=== PATIENT | female | born 2000 | race Two or more races ===

== ENCOUNTER 2021-12-28 18:03 | Inpatient (IN) | payer OTHER ==
[2021-12-28 19:21] VITALS: BMI 18.8
[2021-12-28] MEDS ORDERED: MENTHOL/PHENOL 1 EACH UD MM PRN (19:22)
[2021-12-28] MEDS ORDERED: ONDANSETRON *ODT* 4 MG TABLET SL PRN (19:22)
[2021-12-28] MEDS ORDERED: MAG HYDROX/AL HYDROX/SIMETH 30 ML UNIT-DOSE CUP PO PRN (19:22)
[2021-12-28] MEDS ORDERED: MAGNESIUM HYDROX 2400MG/30ML ORAL SUSPENSION 30 ML CUP PO PRN (19:22)
[2021-12-28] MEDS ORDERED: MAGNESIUM CITRATE 300 ML BOTTLE PO PRN (19:22)
[2021-12-28] MEDS ORDERED: BISMUTH SUBSALICYLATE 524 MG/30 ML PO PRN (19:22)
[2021-12-28] MEDS ORDERED: IBUPROFEN 400 MG TABLET (FP) PO PRN (19:22)
[2021-12-28] MEDS ORDERED: ACETAMINOPHEN 325 MG TABLET (FP) PO PRN ×2 (19:22)
[2021-12-28] MEDS ORDERED: LOPERAMIDE HCL 2 MG CAPSULE PO PRN (19:22)
[2021-12-28] MEDS ORDERED: methaDONE HCL 10 MG TABLET (FOR DETOX USE ONLY) PO ONE (19:24)
[2021-12-28] MEDS ORDERED: cloNIDine HCL 0.1 MG TABLET PO PRN (19:24)
[2021-12-28] MEDS: THIAMINE HCL 100 MG TABLET (FP) PO SCH (23:02)
[2021-12-29] MEDS: hydrOXYzine PAMOATE 25 MG CAPSULE (FP) PO PRN ×2 (08:31→22:12)
[2021-12-29] MEDS ORDERED: methaDONE HCL 10 MG TABLET (FOR DETOX USE ONLY) ONE (09:47)
[2021-12-29] MEDS: PRENATAL VITAMINS W/ FOLIC ACID TABLET (FP) PO SCH (09:53)
[2021-12-29] MEDS: METHOCARBAMOL 500 MG TABLET PO PRN ×2 (09:53→18:05)
[2021-12-29] MEDS: diazePAM 5 MG TABLET PO PRN ×3 (10:45→22:11)
[2021-12-29 12:47] LABS: HEMOGLOBIN 10.9 GM/dL (10.7-15.3); MCH 29.3 pg (25.7-33.7); MCHC 32.1 g/dl (32.0-36.0); MEAN PLT VOLUME 10.1 fl (7.5-11.1); PLATELET COUNT 260 10^3/uL (134-434); RBC 3.73 M/mm3 (3.60-5.2); RDW 13.8 % (11.6-15.6); WHITE BLOOD COUNT 11.2 K/mm3 (4.0-10.0)
[2021-12-29 13:04] LABS: ALBUMIN 3.2 g/dl (3.4-5.0); BLOOD UREA NITROGEN 10.4 mg/dL (7-18); CALCIUM 9.3 mg/dL (8.5-10.1)
[2021-12-29 13:06] LABS: CREATININE 0.7 mg/dL (0.55-1.3)
[2021-12-29 13:08] LABS: BILIRUBIN,TOTAL 0.1 mg/dL (0.2-1); TOT PROT 6.5 g/dl (6.4-8.2)
[2021-12-29] MEDS: NICOTINE POLACRILEX 2 MG GUM BUC PRN (18:00)
[2021-12-29] MEDS ORDERED: TRIMETHOBENZAMIDE HCL 200MG/2ML INJ IM ONE (18:41)
[2021-12-29] MEDS: THIAMINE HCL 100 MG TABLET (FP) PO SCH (22:11)
[2021-12-29] MEDS: NICOTINE 10 MG CARTRIDGE (INHALER) IH PRN (22:11)
[2021-12-29] MEDS: MELATONIN 5 MG TABLETS PO PRN (22:11)
[2021-12-30] MEDS ORDERED: methaDONE HCL 10 MG TABLET (FOR DETOX USE ONLY) PO ONE (10:00)
[2021-12-30] MEDS: NICOTINE 10 MG CARTRIDGE (INHALER) IH PRN ×3 (10:05→22:07)
[2021-12-30] MEDS: PRENATAL VITAMINS W/ FOLIC ACID TABLET (FP) PO SCH (10:05)
[2021-12-30] MEDS: hydrOXYzine PAMOATE 25 MG CAPSULE (FP) PO PRN ×2 (10:06→22:05)
[2021-12-30 10:08] LABS: SARS-CoV-2 NAA Not Detected (Not Detected)
[2021-12-30] MEDS: diazePAM 5 MG TABLET PO PRN ×2 (13:07→22:05)
[2021-12-30] MEDS: METHOCARBAMOL 500 MG TABLET PO PRN ×2 (13:09→22:05)
[2021-12-30] MEDS: MELATONIN 5 MG TABLETS PO PRN (22:05)
[2021-12-30] MEDS: THIAMINE HCL 100 MG TABLET (FP) PO SCH (22:05)
[2021-12-31] MEDS ORDERED: methaDONE HCL 10 MG TABLET (FOR DETOX USE ONLY) ONE (09:36)
[2021-12-31] MEDS: PRENATAL VITAMINS W/ FOLIC ACID TABLET (FP) PO SCH (10:14)
[2021-12-31] MEDS: diazePAM 5 MG TABLET PO PRN ×3 (10:15→19:04)
[2021-12-31] MEDS: METHOCARBAMOL 500 MG TABLET PO PRN ×3 (10:20→23:11)
[2021-12-31] MEDS: NICOTINE 10 MG CARTRIDGE (INHALER) IH PRN ×3 (10:21→18:04)
[2021-12-31] MEDS: hydrOXYzine PAMOATE 25 MG CAPSULE (FP) PO PRN ×2 (18:05→22:25)
[2021-12-31] MEDS: NICOTINE POLACRILEX 2 MG GUM BUC PRN (20:25)
[2021-12-31] MEDS: THIAMINE HCL 100 MG TABLET (FP) PO SCH (22:25)
[2021-12-31] MEDS ORDERED: hydrOXYzine PAMOATE 25 MG CAPSULE (FP) PO ONE (22:53)
[2021-12-31] MEDS ORDERED: diazePAM 5 MG TABLET PO ONE (22:54)
[2022-01-01] MEDS: NICOTINE 10 MG CARTRIDGE (INHALER) IH PRN ×3 (09:40→22:21)
[2022-01-01] MEDS: hydrOXYzine PAMOATE 25 MG CAPSULE (FP) PO PRN ×3 (09:44→22:21)
[2022-01-01] MEDS: PRENATAL VITAMINS W/ FOLIC ACID TABLET (FP) PO SCH (09:44)
[2022-01-01] MEDS: NICOTINE POLACRILEX 2 MG GUM BUC PRN ×2 (09:46→17:40)
[2022-01-01] MEDS ORDERED: methaDONE HCL 10 MG TABLET (FOR DETOX USE ONLY) PO ONE (10:00)
[2022-01-01] MEDS: METHOCARBAMOL 500 MG TABLET PO PRN ×2 (17:38→23:25)
[2022-01-01] MEDS: MELATONIN 5 MG TABLETS PO PRN (22:21)
[2022-01-01] MEDS: THIAMINE HCL 100 MG TABLET (FP) PO SCH (22:21)
[2022-01-02] MEDS: hydrOXYzine PAMOATE 25 MG CAPSULE (FP) PO PRN (06:54)
[2022-01-02] MEDS: METHOCARBAMOL 500 MG TABLET PO PRN (06:54)
[2022-01-02] MEDS: NICOTINE 10 MG CARTRIDGE (INHALER) IH PRN (06:55)
[2022-01-02] MEDS: PRENATAL VITAMINS W/ FOLIC ACID TABLET (FP) PO SCH (10:38)
[2022-01-02 11:23] VITALS: BP 122/72; PULSE 111; TEMP 96.9
== END 2022-01-02 10:03 | disposition home or self-care (01) | DRG 773 ==
LOC: YASAS 18:03 → Y3N 19:53
PROVIDERS: ADMIT Allergy & Immunology; ATTEND Allergy & Immunology
PROC: HZ2ZZZZ Detoxification Services for Substance Abuse Treatment (ICD-10-PCS; principal; 2021-12-28)
DX: F11.23 Opioid dependence with withdrawal (principal); F14.20 Cocaine dependence, uncomplicated; F17.210 Nicotine dependence, cigarettes, uncomplicated; F19.24 Other psychoactive substance dependence with psychoactive substance-induced mood disorder; F41.9 Anxiety disorder, unspecified; D72.829 Elevated white blood cell count, unspecified; E88.09 Other disorders of plasma-protein metabolism, not elsewhere classified; Z62.810 Personal history of physical and sexual abuse in childhood; Z56.0 Unemployment, unspecified; Z59.00 Homelessness unspecified
CPT/HCPCS: 36415; 80053; 85027; 86780; 87811; C9803; J0735; Q0162; U0003; U0005

== ENCOUNTER 2025-07-05 16:37 | Inpatient (IN) | payer OTHER ==
[2025-07-05 16:52] VITALS: BMI 21.4
[2025-07-05] MEDS ORDERED: LOPERAMIDE HCL 2 MG CAPSULE PO PRN (17:52)
[2025-07-05] MEDS ORDERED: ACETAMINOPHEN 325 MG TABLET (FP) PO PRN (17:52)
[2025-07-05] MEDS ORDERED: MAG HYDROX/AL HYDROX/SIMETH 30 ML UNIT-DOSE CUP PO PRN (17:52)
[2025-07-05] MEDS ORDERED: POLYETHYLENE GLYCOL (HEALTHYLAX) 3350 17 GM PACKET PO PRN (17:52)
[2025-07-05] MEDS ORDERED: IBUPROFEN 600 MG TABLET (FP) PO PRN (17:52)
[2025-07-05] MEDS ORDERED: BENZONATATE 200 MG CAPSULE PO PRN (17:52)
[2025-07-05] MEDS ORDERED: NALOXONE (NARCAN) HCL 4 MG/0.1 ML SPRAY NS PRN (17:52)
[2025-07-05] MEDS ORDERED: IBUPROFEN 400 MG TABLET (FP) PO PRN (17:52)
[2025-07-05] MEDS ORDERED: ONDANSETRON *ODT* 4 MG TABLET SL PRN (17:52)
[2025-07-05] MEDS ORDERED: BISMUTH SUBSALICYLATE 524 MG/30 ML PO PRN (17:52)
[2025-07-05] MEDS ORDERED: NICOTINE POLACRILEX 2 MG LOZENGE BC PRN (17:52)
[2025-07-05] MEDS ORDERED: DICYCLOMINE HCL 10 MG CAPSULE PO PRN (17:52)
[2025-07-05] MEDS ORDERED: guaiFENesin 600 MG TABLET.ER (FP) PO PRN (17:52)
[2025-07-05] MEDS ORDERED: MAGNESIUM HYDROX 2400MG/30ML ORAL SUSPENSION 30 ML CUP PO PRN (17:52)
[2025-07-05] MEDS ORDERED: NICOTINE POLACRILEX 2 MG GUM BUC PRN (17:52)
[2025-07-05] MEDS ORDERED: BENZOCAINE/MENTHOL (CHLORASEPTIC ) LOZENGE MM PRN (17:52)
[2025-07-05] MEDS: MELATONIN 5 MG TABLETS PO SCH (22:48)
[2025-07-05] MEDS: METHOCARBAMOL 500 MG TABLET PO PRN (22:48)
[2025-07-05] MEDS: hydrOXYzine PAMOATE 25 MG CAPSULE (FP) PO PRN (22:48)
[2025-07-05] MEDS: THIAMINE 100 MG TABLET PO SCH (22:50)
[2025-07-06 09:44] LABS: MCHC 28.9 g/dl (32.2-35.5); MEAN CELL VOLUME 77.9 fl (79.4-94.8); MEAN PLT VOLUME 11.3 fl (9.4-12.3); RDW 17.1 % (12.1-16.5)
[2025-07-06 10:07] LABS: GLUCOSE,RANDOM 123 mg/dL (74-106); TOT PROT 7.2 g/dl (6.4-8.2)
[2025-07-06 10:08] LABS: CO2 23 mmol/L (21-32)
[2025-07-06 10:10] LABS: ALK PHOS 62 U/L (40-150)
[2025-07-06 10:13] LABS: CREATININE 0.55 mg/dL (0.55-1.3); SGOT/AST 19 U/L (5-34); SGPT/ALT 14 U/L (0-55)
[2025-07-06] MEDS: PRENATAL VITAMINS W/ FOLIC ACID TABLET (FP) PO SCH (10:15)
[2025-07-10 09:52] VITALS: BP 112/68; PULSE 90; RESP 12; TEMP 97.5
== END 2025-07-10 09:19 | disposition home or self-care (01) | DRG 773 ==
LOC: YASAS 16:37 → Y3N 18:22
PROVIDERS: ADMIT Neuromusculoskeletal Medicine & OMM; ATTEND Allergy & Immunology
PROC: HZ2ZZZZ Detoxification Services for Substance Abuse Treatment (ICD-10-PCS; principal; 2025-07-05)
DX: F11.23 Opioid dependence with withdrawal (principal); F10.230 Alcohol dependence with withdrawal, uncomplicated; F14.20 Cocaine dependence, uncomplicated; F17.210 Nicotine dependence, cigarettes, uncomplicated; F19.280 Other psychoactive substance dependence with psychoactive substance-induced anxiety disorder; F19.282 Other psychoactive substance dependence with psychoactive substance-induced sleep disorder; F19.24 Other psychoactive substance dependence with psychoactive substance-induced mood disorder; F32.A Depression, unspecified; Z62.810 Personal history of physical and sexual abuse in childhood
CPT/HCPCS: 36415; 80053; 80307; 85027; 86780; 93005; 93010